=== PATIENT | female | born 1955 | race Caucasian/White ===

== ENCOUNTER 2024-05-11 15:23 | Outpatient (CLI) | payer MEDICARE, BC, SELFPAY | END 2024-05-11 15:24 | disposition home or self-care (01) | LOC: NFLDREF 05-13 23:38 | PROVIDERS: PCP Family Medicine; Referring Provider Family Medicine; Visit Provider Physician Assistant | DX: N30.91 Cystitis, unspecified with hematuria (principal); B96.20 Unspecified Escherichia coli [E. coli] as the cause of diseases classified elsewhere | CPT/HCPCS: 87086; 87186 ==

== ENCOUNTER 2025-01-29 13:00 | Outpatient (RCR) | payer MEDICARE, BC, SELFPAY | END 2025-02-12 14:32 | disposition home or self-care (01) | PROVIDERS: PCP Family Medicine; Visit Provider Orthopaedic Surgery Sports Medicine | DX: Z47.89 Encounter for other orthopedic aftercare (principal); Z87.81 Personal history of (healed) traumatic fracture; Z51.89 Encounter for other specified aftercare | CPT/HCPCS: 97110; 97112; 97116; 97161 ==

== ENCOUNTER 2025-10-08 14:30 | Outpatient (RCR) | payer MEDICARE, BC, SELFPAY ==
--- NOTE | 2025-09-11 11:09 | PT.OPEX ---
PT [facility] Outpatient Eval PT [facility] Outpatient Eval Start: 09/10/25 16:59 Freq: Status: Active Protocol: Document 09/11/25 10:02 NLR (Rec: 09/11/25 11:09 NLR [id number]) E-signed By Michelle Magaña DPT Physical Therapy Outpatient Evaluation Insurance Information Recert Due Date 12/10/25 Insurance Name Medicare B,Blue Cross/Blue Shield Medical Diagnosis Z98.890 Postprocedural state Treating Diagnosis M25.651 Stiffness right hip M62.551 Weakness right thigh M62.81 Core muscle weakness Referring MD Mick Taveras MD Subjective Preferred Name CASSIDY Subjective Cassidy arrives for PT evaluation almost one year status post R hip ORIF following a trauma. She was seen by physical therapy following ORIF and was doing well, except she has not regained full motion at her R hip and she is quite active. She notes tightness putting on socks and inability to fully extend hip resulting in difficulty biking and walking long distances. She is walking 3-5 miles per day, she bikes up to 10 miles or more regularly but hip is very limited range of motion. Pain Comments 0/10 - feels stiff Date of Last 09/08/25 Physician Visit Current Work Status Retired Occupation Retired, lives alone, very active. Precautions Treatment R hip ORIF 10/14 Precautions/ Contraindications Therapy Limitations/ Not Limited Systems Review Objective Other/Pertinent ROM: RIGHT hip flexion 90; LEFT hip flexion 100; RIGHT Objective hip abduction 20; LEFT hip abduction 40; RIGHT hip ER 15; LEFT hip ER 40; RIGHT hip IR 10; LEFT hip IR 30 ( very limited rotation at R hip and lacking full extension) STRENGTH: RIGHT leg 4/5; LEFT leg 5/5; core strength 3/ 5 POSTURE: upright FUNCTIONAL: Sit to/from stand independent; sit to/from supine independent. GAIT: Gait independent with no gait aid. Pattern is wide based with inability to full extend on the right resulting in a pelvic rotation at end stance. She can do stairs, exhibits a step over step pattern up and down. FOOTWEAR: Patient arrives wearing athletic shoes that do provide adequate biomechanical support for their foot. She does wear a supportive shoe or slipper with arch support in the home. Assessment Assessment/ Cassidy is a very active 70-year-old female who presents Impression for skilled PT evaluation presenting with right hip rotation and extension stiffness which is consistent with post op scarring and limited ROM in the setting of post trauma ORIF 10/14. Patient is an appropriate candidate for skilled physical therapy to target deficits described above. Skilled PT intervention is necessary to achieve goals as stated. D/C plan and criteria is for patient to achieve the goals as outlined or until max rehab potential is met. Patient was agreeable with plan of care and goals established. This evaluation is of low complexity due to the stable nature of the patient?s presentation as well as the low comorbidities and medical factors included in this evaluation. Primary Functional Difficulty walking longer distances especially uneven Limitations surfaces, difficulty with full revolutions biking. Plan of Care Rehabilitation Excellent Potential Rehabilitation Patient is otherwise healthy and motivated to improve Potential Comments in order to return to prior level of function. Physical Therapy 1. Patient will be independent with home exercise Goals program as instructed, modified and progressed by physical therapist in order to be independently and actively participating in their rehabilitation and return to prior level of function. Goal to be achieved by 12/04/2025. 2. Patient will demonstrate improved tolerance for movement with decreased pain and joint restriction to allow her to return to pre-injury fitness activities of choice such as walking, biking, swimming, yoga demonstrating improvement in form and/or mechanics to allow patient to return to pre-onset level of function. Goal to be achieved by 12/04/2025. Coordination/ Referral Source Communication With Treatment Plan/ Dry Needling,Electrical Stimulation,Gait Training, Direct Interventions Manual Therapy,Neuromuscular Re-ed,Therapeutic Exercises Frequency/Duration 1X/week 4-6 weeks Patient Will Be Completion of LTG(s),Skills Plateau,Independent w/HEP, Discharged From Independently Progressing Therapy Discharge Plan DC with HEP Comments Evaluation Billing Untimed Code 15 Treatment Minutes PT Eval No Charge No Complexity Low Certification Information Initial 09/11/25 Certification Date Ending Certification 12/10/25 Date Provider Signature Yes Required Provider Signature POC & Medical Necessity Shows Agreement With Physician NPI Number Write NPI# Here Physician Comment/ : Change Physician Signature Please Sign/Date Here & Date Requested
--- NOTE | 2025-10-08 15:20 | PT.OPDNX ---
PT [facility] Out[facility] Daily Note PT [facility] Out[facility] Daily Note Start: 09/10/25 16:59 Freq: Status: Active Protocol: Document 10/08/25 13:47 NLR (Rec: 10/08/25 15:18 NLR [id number]) E-signed By Michelle Magaña DPT PT [facility] Daily Progress Note Visit Information Note Type Discharge Note Visit Number 3 Insurance Information Recert Due Date 12/10/25 Insurance Name Medicare B,Blue Cross/Blue Shield Medical Diagnosis Z98.890 Postprocedural state Treating Diagnosis M25.651 Stiffness right hip M62.551 Weakness right thigh M62.81 Core muscle weakness Referring MD Mick Taveras MD Subjective Preferred Name RANDAL Benjamin arrives for follow up stating she is doing her HEP several times per day. She is very active and is eager to improve her core strength and gait pattern. She feels confident in her HEP as we have done including additions made today. Pain Comments 0/10 - feels stiff Date of Last 09/08/25 Physician Visit Precautions Treatment R hip ORIF 10/14 Precautions/ Contraindications Home Exercise Home Exercise Updated and finalized [employer] HEP with patient today. Comments Access Code: [email or web address] URL: [email or web address] +/ Date: 10/08/2025 Prepared by: Michelle Magaña Program Notes Full weight bearing. Exercises - Low Back Sink Stretch - 2 sets - 10 reps - 2-3 seconds hold - strength/range of motion exercise type - Standing Back Extension at Wall - 2 sets - 10 reps - 2-3 seconds hold - range of motion exercise type - Prone Press Up On Elbows - 1-2 reps - 30-60 seconds hold - stretch exercise type - Supine Gluteus Stretch - 1-2 reps - 30-60 seconds hold - stretch exercise type - Half Kneeling Hip Flexor Stretch - 1-2 reps - 30-60 second hold - stretch exercise type - Standing Hip Flexor Stretch on Stairs - 1-2 reps - 30-60 second hold - stretch exercise type - Elephant Trunk Rotation - 10 reps - 10-15 seconds hold - dynamic warm up exercise type - Dynamic Hip External Rotation Walk - 2-3 minutes distance - dynamic warm up exercise type - Leg Swings Forward Backward - 2 sets - 10 reps - dynamic warm up exercise type - Leg Swings Side to Side - 2 sets - 10 reps - dynamic warm up exercise type - Trunk Unlock Rotation Walk - 1-2 x daily - 1-2 reps - 2-3 seconds hold - trunk rotation exercise type - 20- 30 feet distance - Bug Alternating Arm Extension - 2 sets - 10 reps - 2-3 seconds hold - core strength exercise type - Bug Level 1 - 2 sets - 10 reps - second hold - core strength exercise type - Pallof Press Core Strength - 2 sets - 10 reps - 2-3 second hold - core strength exercise type - Donkey Kicks - 2 sets - 10 reps - 2-3 seconds hold - strength exercise type - Prone Hip Extension with Bent Knee - 1-2 sets - 10 reps - 3-5 second hold - strength exercise type Objective Other/Pertinent ROM: RIGHT hip flexion 90; LEFT hip flexion 100; RIGHT Objective hip abduction 20; LEFT hip abduction 40; RIGHT hip ER 15; LEFT hip ER 40; RIGHT hip IR 10; LEFT hip IR 30 ( very limited rotation at R hip and lacking full extension) STRENGTH: RIGHT leg 4/5; LEFT leg 5/5; core strength 3/ 5 POSTURE: upright FUNCTIONAL: Sit to/from stand independent; sit to/from supine independent. GAIT: Gait independent with no gait aid. Pattern is wide based with inability to full extend on the right resulting in a pelvic rotation at end stance. She can do stairs, exhibits a step over step pattern up and down. FOOTWEAR: Patient arrives wearing athletic shoes that do provide adequate biomechanical support for their foot. She does wear a supportive shoe or slipper with arch support in the home. Patient Instructed Yes in Risks/Benefits Therapeutic Exercise Therapeutic Exercise 30 Minutes (minutes) Therapeutic Exercise - Bug Alternating Arm Extension : To Restore - Bug Leg Extension Functional Status - Pallof Press Core Strength - Donkey Kicks - Prone Hip Extension with Bent Knee - Low Back Sink Stretch - Standing Back Extension at Wall - Prone Press Up On Elbows - Supine Gluteus Stretch - Supine Lateral Hip Stretch - Half Kneeling Hip Flexor Stretch - Standing step hip flexor stretch - Trunk Rotation Elephant Arms DWU - Leg Swings Forward Backward DWU - Leg Swings Side to Side DWU Gait & Stair Training Gait Training/Stairs 15 Minutes (minutes) Gait & Stair - Dynamic Hip External Rotation Walk to improve trunk/ Training Comments hip contralateral rotation - Worked on piecing out hip versus contralateral shoulder rotation during gait to improve arm swing and unlock trunk rotation Treatment Minutes Timed Code Treatment 45 Minutes Total Treatment Time 45 Billing Units Gait Training/Stairs 1 Units Therapeutic Exercise 2 Units Assessment/Impression Assessment/ Randal is a very active 70-year-old female who is very Impression participative in her program and is eager to improve her gait following trauma to hip this year. She started lacking full extension and hip rotation, both of which have improved significantly and in turn her gait has improved. She still tends to lack full extension and rotation at her hip with normal daily gait, but with the above HEP it has improved and she can self-correct with cues. Goals have been achieved, no further skilled intervention indicated at this time. Primary Functional None Limitations Plan of Care Physical Therapy 1. Patient will be independent with home exercise Goals program as instructed, modified and progressed by physical therapist in order to be independently and actively participating in their rehabilitation and return to prior level of function. Goal to be achieved by 12/04/2025. ACHIEVED 2. Patient will demonstrate improved tolerance for movement with decreased pain and joint restriction to allow her to return to pre-injury fitness activities of choice such as walking, biking, swimming, yoga demonstrating improvement in form and/or mechanics to allow patient to return to pre-onset level of function. Goal to be achieved by 12/04/2025. ACHIEVED Daily Plan of Care Discharge Daily Plan of Care DC with HEP Comments Discharge Note Discharge Summary Randal is a very active 70-year-old female who is very participative in her program and is eager to improve her gait following trauma to hip this year. She started lacking full extension and hip rotation, both of which have improved significantly and in turn her gait has improved. She still tends to lack full extension and rotation at her hip with normal daily gait, but with the above HEP it has improved and she can self-correct with cues. Goals have been achieved, no further skilled intervention indicated at this time. Date of First Visit 09/11/25 for Therapy Date of Last Visit 10/08/25 for Therapy Initial Primary Difficulty walking longer distances especially uneven Functional surfaces, difficulty with full revolutions biking. Limitations Initial Pain Level 0/10 stiff Recommendations/ Met All Therapy Goals Reason for Discharge Discharge DC with HEP Instructions Thank You For This Thank you for this physical therapy referral. Discharge Referral is attached. Signature not required. Contact us if you have any questions or concerns by phone at or by fax at [phone] attn: Michelle Stout, PT, DPT.
== END 2025-10-20 17:29 | disposition home or self-care (01) ==
PROVIDERS: PCP Family Medicine; Visit Provider Orthopaedic Surgery Sports Medicine
DX: Z48.89 Encounter for other specified surgical aftercare (principal); Z87.81 Personal history of (healed) traumatic fracture; Z51.89 Encounter for other specified aftercare
CPT/HCPCS: 97110; 97116; 97161